=== PATIENT | female | born 1985 | race Caucasian/White ===

== ENCOUNTER 2016-06-14 20:28 | Emergency (ER) | payer MEDICAID ==
[~2016-06-14] VITALS: Ht 157.5 cm; Wt 45.0 kg
[~2016-06-14 20:28] MED LIST: AMOX250S2 PO; COMPCHW; IBUP-232 PO
[2016-06-14 20:40] VITALS: BP 97/58; PULSE 62; RESP 16; TEMP 97.4; O2SAT 99
[2016-06-14 23:37] VITALS: TEMP 97.7
[2016-06-14 23:47] LABS: BLOOD, URINE NEG (NEG); COMMENT (UR) CULT NOT INDICATED; CULTURE IF INDICATED CULT NOT INDICATED; GLUCOSE,URINE NEG (NEG); KETONE, URINE NEG (NEG); MUCUS URINE FEW /lpf (OCC); NITRITE,URINE NEG (NEG); PH, URINE 6.5 (5.0-8.5); RENAL EPITHELIAL CELLS <1 /hpf; SQUAMOUS EPITHELIAL CELL URINE 2 /hpf (0-5); URINE COLOR YELLOW (YELLW/STRAW)
[2016-06-15] MEDS ORDERED: CLIN2CRE VAGINAL (01:24)
--- NOTE | 2016-06-15 01:25 | PD ---
HPI Chief Complaint: Complaint Time Seen by Provider: 23:31 Travel History International Travel<30 days: No Contact w/Intl Traveler<30days: No Traveled to known affect area: No History of Present Illness HPI Patient's 30 years old. She is here due to urinary frequency and dysuria. She reports nausea and headaches for the past 2 days. She states she believes she has UTI. She denies fever. She denies diarrhea. She's had no abnormal vaginal discharge or bleeding. Last menstruation was 1 month prior. PFSH Past Medical History Hx Anticoagulant Therapy: No Anxiety: Yes Depression: Yes Cardiovascular Problems: No Chemotherapy: No Cerebrovascular Accident: No Diabetes: No Diminished Hearing: No Respiratory: No Immunizations Current: No ?: Not LMP: : 2 Para: 1 Miscarriage: 0 : 1 Past Surgical History Hysterectomy: No Social History Alcohol Use: No Tobacco Use: No Substance Use: No Allergies-Medications (Allergen,Severity, Reaction): Coded Allergies: Cephalexin (Verified Allergy, Severe, RAPID HEART RATE, 06/14/16) Flagyl (Verified Allergy, Severe, THROAT SWELLS, 06/14/16) Amoxicillin (Verified Adverse Reaction, Mild, Tachycardia, 06/14/16) Reported Meds & Prescriptions Reported Meds & Active Scripts Active No Active Prescriptions or Reported Medications Review of Systems Except as stated in HPI: all other systems reviewed are Neg Physical Exam Narrative GENERAL: 30-year-old female pleasant GENITOURINARY: Vulva normal. No adnexal mass or tenderness. Minimal discharge in vault. No significant CMT SKIN: Warm and dry. HEAD: Atraumatic. Normocephalic. EYES: Pupils equal and round. No scleral icterus. No injection or drainage. ENT: No nasal bleeding or discharge. Mucous membranes pink and moist. NECK: Trachea midline. No JVD. CARDIOVASCULAR: Regular rate and rhythm. RESPIRATORY: No accessory muscle use. Clear to auscultation. Breath sounds equal bilaterally. GASTROINTESTINAL: Abdomen soft, non-tender, nondistended. Hepatic and splenic margins not palpable. MUSCULOSKELETAL: Extremities without clubbing, cyanosis, or edema. No obvious deformities. NEUROLOGICAL: Awake and alert. No obvious cranial nerve deficits. Motor grossly within normal limits. Five out of 5 muscle strength in the arms and legs. Normal speech. PSYCHIATRIC: Appropriate mood and affect; insight and judgment normal. Data Data Last Documented VS Vital Signs Date Time Temp Pulse Resp B/P Pulse Ox O2 Delivery O2 Flow Rate FiO2 06/14/16 23:37 97.7 06/14/16 20:40 62 16 97/58 99 Vital signs reviewed Orders Urinalysis - C+S If Indicated (06/14/16 23:32) Influenzae A/B Antigen (06/14/16 23:41) Ed Urine Pregnancytest Poc (06/14/16 23:41) Gc And Chlamydia Pcr (06/14/16 23:54) Wet Prep Profile (06/14/16 23:54) Labs Laboratory Tests Test 06/14/16 06/15/16 23:30 00:20 Urine Color YELLOW Urine Turbidity HAZY Urine pH 6.5 Urine Specific [place] 1.021 Urine Protein TRACE mg/dL Urine Glucose (UA) NEG mg/dL Urine Ketones NEG mg/dL Urine Occult Blood NEG Urine Nitrite NEG Urine Bilirubin NEG Urine Urobilinogen LESS THAN 2.0 MG/DL Urine Leukocyte Esterase TRACE Urine RBC 1 /hpf Urine WBC 4 /hpf Urine Squamous Epithelial 2 /hpf Cells Urine Renal Epithelial Cells <1 /hpf Urine Amorphous Sediment RARE Urine Mucus FEW /lpf Microscopic Urinalysis Comment CULT NOT INDICATED Clue Cells (Wet Prep) PRESENT Vaginal Trichomonas (Wet Prep) NONE SEEN Vaginal Yeast (Wet Prep) NONE SEEN MDM Medical Decision Making Medical Screen Exam Complete: Yes Emergency Medical Condition: Yes Medical Record Reviewed: Yes Differential Diagnosis IUP, UTI, ectopic , ov torsion, appendicitis, TOA, cervicitis, BV, Trichomoniasis, ov cyst, hernia, mittelschmerz, pain from menstruation Narrative Course Wet prep reveals bacterial vaginosis. The patient will receive Flagyl. She is ready for discharge. Diagnosis Primary Impression: Bacterial vaginosis Referrals: Primary Care Physician 2 days Additional Instructions: You have a choice when it comes to health care, and we are glad that you chose [facility]. Hopefully, we have met your expectations on today's visit. You are welcome to return to [facility] at any time, as we are committed to meeting the health care needs of our community. Med/Other Pt SpecificInfo: Prescription(s) given Scripts Clindamycin Vaginal Cream 2% Cream1 Appl VAGINAL HS #7 APPL Ref 0 Prov:Augusto Holland MD 06/15/16 Disposition: 01 DISCHARGE HOME Condition: Stable Augusto Holland MD Jun 15, 2016 01:24
[2016-06-15 02:43] LABS: CHLAMYDIA PCR NOT DETECTED (NOT DETECT); NEISSERIA PCR NOT DETECTED (NOT DETECT)
== END 2016-06-15 01:33 | disposition home or self-care (01) ==
LOC: NEPE 20:28
DX: N76.0 Acute vaginitis (principal); R51 Headache; R11.0 Nausea
CPT/HCPCS: 81001; 84703; 87210; 87491; 87591; 87804; 99283

== ENCOUNTER 2017-07-14 13:34 | Emergency (ER) | payer MEDICAID ==
[~2017-07-14] VITALS: Ht 157.5 cm; Wt 48.0 kg
[~2017-07-14 13:34] MED LIST changes: -AMOX250S2 PO; +CLIN2CRE VAGINAL; -COMPCHW; -IBUP-232 PO
[2017-07-14 13:40] VITALS: BP 121/57; PULSE 81; RESP 20; TEMP 98.5; O2SAT 98
[2017-07-14 14:54] LABS: BILIRUBIN, URINE NEG (NEG); BLOOD, URINE NEG (NEG); GLUCOSE,URINE NEG (NEG); KETONE, URINE NEG (NEG); MUCUS URINE FEW /lpf (OCC); NITRITE,URINE NEG (NEG); PH, URINE 5.5 (5.0-8.5); SQUAMOUS EPITHELIAL CELL URINE 4 /hpf (0-5); URINE COLOR YELLOW (YELLW/STRAW); URINE LEUKOCYTE ESTERASE NEG (NEG)
[2017-07-14] MEDS ORDERED: FLUC150T PO (16:01)
[2017-07-14] MEDS ORDERED: GYNE3CRE VAGINAL (16:01)
--- NOTE | 2017-07-14 16:02 | PD ---
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 She denies having any lumps or any blisters or anything like that on her external vulvar region. States this has been going on for about a week, she has been using cranberry juice and AZO [id number] but no improvement. Patient denies any alleviating or aggravating factors. Patient states that she has not had sex in a year. States allergy to amoxicillin and Keflex and Flagyl PFSH Past Medical History Hx Anticoagulant Therapy: No Anxiety: Yes Depression: Yes Cardiovascular Problems: No Chemotherapy: No Cerebrovascular Accident: No Diabetes: No Diminished Hearing: No Respiratory: No Immunizations Current: No ?: Not LMP: 4--18 : 2 Para: 1 Miscarriage: 0 : 1 Past Surgical History Hysterectomy: No Social History Alcohol Use: No Tobacco Use: No Substance Use: No Allergies-Medications (Allergen,Severity, Reaction): Coded Allergies: cephalexin (Unverified Allergy, Severe, RAPID HEART RATE, 07/14/17) metronidazole (Unverified Allergy, Severe, THROAT SWELLS, 07/14/17) amoxicillin (Unverified Adverse Reaction, Mild, Tachycardia, 07/14/17) Reported Meds & Prescriptions Reported Meds & Active Scripts Active Clindamycin Vaginal Cream (Clindamycin Phosphate) 2% Cream 1 Appl VAGINAL HS Review of Systems General / Constitutional: No: Fever Eyes: No: Visual changes HENT: No: Headaches Cardiovascular: No: Chest Pain or Discomfort Respiratory: No: Shortness of Breath Gastrointestinal: No: Abdominal Pain Genitourinary: Positive: Dysuria, Discharge Musculoskeletal: No: Pain Skin: No Rash Neurologic: No: Weakness Psychiatric: No: Depression Endocrine: No: Polydipsia Hematologic/Lymphatic: No: Easy Bruising Physical Exam Narrative GENERAL: SKIN: Warm and dry. HEAD: Atraumatic. Normocephalic. EYES: Pupils equal and round. No scleral icterus. No injection or drainage. ENT: No nasal bleeding or discharge. Mucous membranes pink and moist. NECK: Trachea midline. No JVD. CARDIOVASCULAR: Regular rate and rhythm. RESPIRATORY: No accessory muscle use. Clear to auscultation. Breath sounds equal bilaterally. GASTROINTESTINAL: Abdomen soft, non-tender, nondistended. JONES Weeks at bedside assisting: There are no lesions on the vulvar region, cervix was erythematous and thick white discharge was noted surrounding the oliva as well as around cervix. Swabs were obtained and sent for culture however clinically it appears to be candidiasis MUSCULOSKELETAL: Extremities without clubbing, cyanosis, or edema. No obvious deformities. NEUROLOGICAL: Awake and alert. No obvious cranial nerve deficits. Motor grossly within normal limits. Five out of 5 muscle strength in the arms and legs. Normal speech. PSYCHIATRIC: Appropriate mood and affect; insight and judgment normal. Data Data Last Documented VS Vital Signs Date Time Temp Pulse Resp B/P (MAP) Pulse Ox O2 Delivery O2 Flow Rate FiO2 07/14/17 13:40 98.5 81 20 121/57 (78) 98 Orders Orders Urinalysis - C+S If Indicated (07/14/17 13:43) Labs Laboratory Tests Test 07/14/17 13:55 Urine Color YELLOW Urine Turbidity CLEAR Urine pH 5.5 Urine Specific [place] 1.032 Urine Protein TRACE mg/dL Urine Glucose (UA) NEG mg/dL Urine Ketones NEG mg/dL Urine Occult Blood NEG Urine Nitrite NEG Urine Bilirubin NEG Urine Urobilinogen 2.0 MG/DL Urine Leukocyte Esterase NEG Urine WBC LESS THAN 1 /hpf Urine Squamous Epithelial Cells 4 /hpf Urine Mucus FEW /lpf Microscopic Urinalysis Comment CULT NOT INDICATED MDM Medical Decision Making Medical Screen Exam Complete: Yes Emergency Medical Condition: Yes Medical Record Reviewed: Yes Differential Diagnosis UTI versus related versus STD Narrative Course After evaluation patient's UA is negative for any UTI test is negative Upon pelvic examination, the patient's discharge seems most consistent with candidiasis, swabs were sent to test for GC chlamydia and trichomonas as well. Diagnosis Primary Impression: Vaginal candidiasis Patient Instructions: General Instructions Scripts Clotrimazole Vaginal (Gyne-Lotrimin 3 Vaginal) 2% Cream 1 APPL VAGINAL HS for Fungal Infection, #3 GM 0 Refills Prov: Yemi Butterfield MD 07/14/17 Fluconazole (Fluconazole) 150 Mg Tab 150 MG PO ONCE for Infection, #1 TAB 0 Refills Prov: Yemi Butterfield MD 07/14/17 Disposition: 01 DISCHARGE HOME Condition: Stable Yemi Butterfield MD Jul 14, 2017 16:01
== END 2017-07-14 16:24 | disposition home or self-care (01) ==
LOC: NEPD 13:34
DX: B37.3 Candidiasis of vulva and vagina (principal); R30.0 Dysuria
CPT/HCPCS: 81001; 87491; 87591; 99283